=== PATIENT | female | born 1960 | race Caucasian/White ===

== ENCOUNTER → 2017-08-01 | Outpatient (CLI) | payer MEDICARE, MEDICAID, SELFPAY | PROVIDERS: Visit Provider Internal Medicine Adolescent Medicine | DX: R68.89 Other general symptoms and signs (principal) | CPT/HCPCS: 87275; 87276 ==

== ENCOUNTER → 2017-10-07 13:40 | Outpatient (POV) | payer MEDICARE, MEDICAID, SELFPAY ==
[2017-10-07 14:00] VITALS: BP 142/89; PULSE 66; RESP 20; TEMP 36.6; O2SAT 97; BMI 39.6
--- NOTE | 2017-10-07 14:54 | HMH.PMCON ---
Assessment and Plan (1) Chronic, continuous use of opioids Current visit: Yes Status: Chronic Category: Medical Code(s): F11.90 - Opioid use, unspecified, uncomplicated (2) Back pain Current visit: Yes Status: Chronic Qualifiers: Back pain location: low back pain Chronicity: chronic Back pain laterality: midline Sciatica presence: unspecified whether sciatica present Qualified Code(s): M54.5 - Low back pain; G89.29 - Other chronic pain Category: Medical Code(s): M54.9 - Dorsalgia, unspecified (3) Knee pain Current visit: Yes Status: Chronic Category: Medical Code(s): M25.569 - Pain in unspecified knee (4) Arthritis Current visit: Yes Status: Chronic Category: Medical Code(s): M19.90 - Unspecified osteoarthritis, unspecified site - Assessment and plan all Dx Assessment and Plan for all problems:: The patient and I had a long discussion about interventional therapy versus medication therapy at this time. Patient is currently at [facility]. I spoke with Dr. Cisneros in regards to what recommendations we can give for this patient. At this time we believe that discontinuing the fentanyl patch would be beneficial. In place of the fentanyl patch in the Percocet we recommend oxycodone 10 mg 1 p.o. 4 times daily. If the patient were to have any withdrawal symptoms after removal of the patch patient could take 2 oxycodone 10 mg tablets for 2-3 days and slowly decrease this dose to 4 times a day. After this regimen has started I will be more than happy to see this patient back in a month and reassess her pain at that time. I do not believe this patient is an injective candidate at this time however we may come to this in the future. This note was dictated using voice recognition software and may contain errors or omissions HPI - Data of Consult Consult date: 10/07/17 Requesting Physician: Sarah Kong APRN Primary Care Provider: Antonio Montesinos MD Family Provider: Celena Bloom APRN - Consult Narrative Reason for consult: Chronic pain History of present illness: Ms. Valverde is a 57 year old female who presents today to discuss her chronic pain. Patient has pain in her lower back that radiates down both of her legs. Patient is wheelchair-bound. Patient currently living at [facility]. Patient rates her pain an 8 out of 10. Patient states her pain is constant, achy, dull. Patient also has arthritic joint pain. Patient has had back surgery by Dr. Luther in the past and bilateral knee replacements. 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 Patient is not having good relief with her current pain medications. Patient on fentanyl patch 100 mcg/h every 72 hours and Percocet 5 mg 1 tablet p.o. 8 hours as needed. Patient states that she does not notice any difference with the fentanyl patch however she does notice a difference with the pain pills. Patient has had injections in her back in the past. Patient not currently have any imaging. Patient is not really interested in injective therapy at this time however she is not closed to this. CC: Sarah Kong APRN [facility] History Medical History: Reports:: Diabetes Mellitus Type 2 Denies:: Cancer, Diabetes Mellitus Type 1, MRSA Other Medical History: Reports: Anemia, Hypothyroidism Laterality Cases: Bilateral: Arthroscopy Knee Other Surgeries: Yes: Bariatric Surgery Amputation: No Fractures: No - *Social History Educational Level: Attended Grade School Alcohol Intake: never Occupational Status: disabled Housing: [facility] Household Members: other - Psychiatric History Expresses thoughts of harming self/others: None Suicide Plan Description: No Plan *Family Hx:: No significant family history Review of Systems - Review of Systems ROS General: no recent weight change, no fever, no sleep disturbances Respiratory: no cough, no shortness of air, no recur
--- NOTE | 2017-10-07 14:58 | P.CONS_ITS ---
Assessment and Plan (1) Chronic, continuous use of opioids Current visit: Yes Status: Chronic Category: Medical Code(s): F11.90 - Opioid use, unspecified, uncomplicated (2) Back pain Current visit: Yes Status: Chronic Qualifiers: Back pain location: low back pain Chronicity: chronic Back pain laterality: midline Sciatica presence: unspecified whether sciatica present Qualified Code(s): M54.5 - Low back pain; G89.29 - Other chronic pain Category: Medical Code(s): M54.9 - Dorsalgia, unspecified (3) Knee pain Current visit: Yes Status: Chronic Category: Medical Code(s): M25.569 - Pain in unspecified knee (4) Arthritis Current visit: Yes Status: Chronic Category: Medical Code(s): M19.90 - Unspecified osteoarthritis, unspecified site - Assessment and plan all Dx Assessment and Plan for all problems:: The patient and I had a long discussion about interventional therapy versus medication therapy at this time. Patient is currently at [facility]. I spoke with Dr. Cisneros in regards to what recommendations we can give for this patient. At this time we believe that discontinuing the fentanyl patch would be beneficial. In place of the fentanyl patch in the Percocet we recommend oxycodone 10 mg 1 p.o. 4 times daily. If the patient were to have any withdrawal symptoms after removal of the patch patient could take 2 oxycodone 10 mg tablets for 2-3 days and slowly decrease this dose to 4 times a day. After this regimen has started I will be more than happy to see this patient back in a month and reassess her pain at that time. I do not believe this patient is an injective candidate at this time however we may come to this in the future. This note was dictated using voice recognition software and may contain errors or omissions HPI - Data of Consult Consult date: 10/07/17 Requesting Physician: Sarah Kong APRN Primary Care Provider: Antonio Montesinos MD Family Provider: Celena Bloom APRN - Consult Narrative Reason for consult: Chronic pain History of present illness: Ms. Valverde is a 57 year old female who presents today to discuss her chronic pain. Patient has pain in her lower back that radiates down both of her legs. Patient is wheelchair-bound. Patient currently living at [facility]. Patient rates her pain an 8 out of 10. Patient states her pain is constant, achy, dull. Patient also has arthritic joint pain. Patient has had back surgery by Dr. Luther in the past and bilateral knee replacements. 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 Patient is not having good relief with her current pain medications. Patient on fentanyl patch 100 mcg/h every 72 hours and Percocet 5 mg 1 tablet p.o. 8 hours as needed. Patient states that she does not notice any difference with the fentanyl patch however she does notice a difference with the pain pills. Patient has had injections in her back in the past. Patient not currently have any imaging. Patient is not really interested in injective therapy at this time however she is not closed to this. CC: Sarah Kong APRN [facility] History Medical History: Reports:: Diabetes Mellitus Type 2 Denies:: Cancer, Diabetes Mellitus Type 1, MRSA Other Medical History: Reports: Anemia, Hypothyroidism Laterality Cases: Bilateral: Arthroscopy Knee Other Surgeries: Yes: Bariatric Surgery Amputation: No Fractures: No - *Social History Educational Level: Attended Grade School Alcohol Intake: never Occupational Status: disabled Housing: retirement
== END ==
PROVIDERS: PCP Internal Medicine Adolescent Medicine; Visit Provider Clinical Nurse Specialist Family Health
DX: M54.5 Low back pain (principal)
CPT/HCPCS: 99202

== ENCOUNTER → 2017-11-03 12:57 | Outpatient (POV) | payer MEDICARE, MEDICAID, SELFPAY ==
[2017-11-03 13:08] VITALS: BP 137/78; PULSE 77; RESP 18; TEMP 36.4; O2SAT 96; BMI 34.0
--- NOTE | 2017-11-03 13:23 | HMH.PAINSOAP ---
[facility] Pain Management SOAP Note Subjective:: This patient is a 57-year-old white female who presents today to discuss her chronic pain. She had been seen in the office on 07 October but the patient's medication regimen has not changed since then. Patient is still having pain in her low back and radiation into her bilateral legs. Patient is wheelchair-bound. She lives at [facility]. She rates the pain a 9 out of 10 today. She states that her pain is constant, A, dull. And also she has arthritic joint pain. She has had bilateral knee replacements in the past. Patient has been on methadone in the past. Patient is currently on fentanyl 100 mcg every 72 hours and Percocet 5 mg 1 p.o. 8 hours as needed. Patient is interested in coming off the fentanyl patch and being put on pain pills. I believe that because she is in a nursing facility where her medication will be monitored that this may be reasonable. ROS General: no recent weight change, no fever, no sleep disturbances Respiratory: no cough, no shortness of air, no recurring pulmonary infections Cardiovascular/Peripheral Vascular: No chest pain, No palpitations, no edema, no shortness of breath. 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 Cisneros in regards to what recommendations we can give for this patient. At this time we believe that discontinuing the fentanyl patch would be beneficial. In place of the fentanyl patch and the Percocet we recommend oxycodone 10 mg 1 p.o. 4 times daily. The patient were to have any withdrawal symptoms after removal of the patch patient could take 2 oxycodone 10 mg 1 tablets for 2-3 days and slowly decrease this dose to 4 times a day. After the regimen is started I would like to see the patient back in 1 month to evaluate efficacy. This note was dictated using voice recognition software and may contain errors or omissions
--- NOTE | 2017-11-03 13:26 | P.CONS_ITS ---
[facility] Pain Management SOAP Note Subjective:: This patient is a 57-year-old white female who presents today to discuss her chronic pain. She had been seen in the office on 07 October but the patient's medication regimen has not changed since then. Patient is still having pain in her low back and radiation into her bilateral legs. Patient is wheelchair- bound. She lives at [facility]. She rates the pain a 9 out of 10 today. She states that her pain is constant, A, dull. And also she has arthritic joint pain. She has had bilateral knee replacements in the past. Patient has been on methadone in the past. Patient is currently on fentanyl 100 mcg every 72 hours and Percocet 5 mg 1 p.o. 8 hours as needed. Patient is interested in coming off the fentanyl patch and being put on pain pills. I believe that because she is in a nursing facility where her medication will be monitored that this may be reasonable. ROS General: no recent weight change, no fever, no sleep disturbances Respiratory: no cough, no shortness of air, no recurring pulmonary infections Cardiovascular/Peripheral Vascular: No chest pain, No palpitations, no edema, no shortness of breath. 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 Cisneros in regards to what recommendations we can give for this patient. At this time we believe that discontinuing the fentanyl patch would be beneficial. In place of the fentanyl patch and the Percocet we recommend oxycodone 10 mg 1 p.o. 4 times daily. The patient were to have any withdrawal symptoms after removal of the patch patient could take 2 oxycodone 10 mg 1 tablets for 2-3 days and slowly decrease this dose to 4 times a day. After the regimen is started I would like to see the patient back in 1 month to evaluate efficacy. This note was dictated using voice recognition software and may contain errors or omissions
== END ==
PROVIDERS: PCP Internal Medicine Adolescent Medicine; Visit Provider Clinical Nurse Specialist Family Health
DX: M17.0 Bilateral primary osteoarthritis of knee (principal); M54.5 Low back pain
CPT/HCPCS: 99212

== ENCOUNTER → 2017-12-08 14:00 | Outpatient (POV) | payer MEDICARE, MEDICAID, SELFPAY ==
--- NOTE | 2017-12-08 14:45 | P.CONS_ITS ---
[facility] Pain Management SOAP Note Subjective:: This patient is a pleasant 57-year-old white female who we made recommendation on medication to manage her back pain and knee pain. She previously was on a fentanyl patch and Percocet. She has been taken off of her fentanyl patch now just been placed on Percocet 10 mg 4 times a day. She is doing well on this. Pain score is a 4-5 out of 10. Her pain is well managed with his current regimen of Percocet 10 mg 4 times a day. She has no side effects. We would recommend that she continue this medication regimen. Objective:: Alert and ?3 no acute distress. She is in a wheelchair. Motor strength of the lower extremities is 3-4 out of 5. There is no gross sensory deficit. 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 If she has any problems or questions she can follow-up with us in the pain clinic on a as needed basis.
[2017-12-08 14:50] VITALS: BP 110/65; PULSE 71; RESP 18; TEMP 36.7; O2SAT 98; BMI 38.0
== END ==
PROVIDERS: PCP Internal Medicine Adolescent Medicine; Visit Provider Anesthesiology
DX: M51.36 Other intervertebral disc degeneration, lumbar region (principal); M17.0 Bilateral primary osteoarthritis of knee
CPT/HCPCS: 99212